=== PATIENT | male | born 1950 | race Caucasian/White ===

== ENCOUNTER 2022-08-14 12:30 | Outpatient (RCR) | payer OTHER, SELFPAY ==
--- NOTE | 2022-07-19 13:28 | PTOPEVAL1 ---
Assessment and note entered by Morales Kumar, PT Evaluation Information Assessment Status Evaluation Diagnosis L TKA Onset 3 weeks ago Subjective Information Patient reports he had a L TKA done 3 weeks ago and has had home health for the first two weeks, seen his surgeon to remove the toni and just turned in his CPM machine today. He used the walker for 4 days and the cane for maybe the rest of the 2 weeks. 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 He reports being faithful with all aspects of his rehab. Reported Pain Level Pain Score 0: Self Report Additional Pain Score Comments currently no pain, some pulling behind his knee that he would not quantify as pain. Assessment PT Clinical Summary Silverio is a 72 year old male coming into the clinic today with a L TKA post three weeks. He is ambulating without assistive device. Has good strength with minimal extension lag during straight leg raises and L knee flexion of 105 degrees once warmed up. Patient will continue to work on range of motion and strengthening while in therapy along with helping him progress back to prior functional mobility. Plan of Care Interventions Electrical Stimulation,Gait Training,Hot Pack/Cold Pack,Manual Therapy,Neuro Re-education,Patient/ Caregiver Education,Therapeutic Activities, Therapeutic Exercise PT Services Indicated Yes Treatment Frequency and 2x/wk for 4 weeks Duration These treatments will address the objective and functional deficits as defined above. The patient will be advanced safely and appropriately in order for the patient to progress towards his/her prior level of function. Additional exercises will be introduced and as well as a comprehensive home exercise program upon discharge, if needed, ?to ensure carryover of functional gains achieved in the clinic. This treatment plan has been reviewed and agreement upon by the patient.
--- NOTE | 2022-08-07 16:32 | PTOPPROGNS ---
Assessment and note entered by Morales Kumar, PT Evaluation Information Assessment Status Progress - Pt Not Present Diagnosis L TKA Onset 3 weeks ago Subjective Information Patient reports he had a L TKA done 3 weeks ago and has had home health for the first two weeks, seen his surgeon to remove the toni and just turned in his CPM machine today. He used the walker for 4 days and the cane for maybe the rest of the 2 weeks. 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 He reports being faithful with all aspects of his rehab. Assessment PT Clinical Summary Naresh is a 72 year old male coming into the clinic for a L TKA. He has attended 6 visits so far. He is not using any assistive devices and reports no issues with pre surgery functional mobility. He has normal strength and L knee active range of motion of 112 degrees flexion and lacking 2 degrees of extension. Plan of Care PT Services Indicated Yes These treatments will address the objective and functional deficits as defined above. The patient will be advanced safely and appropriately in order for the patient to progress towards his/her prior level of function. Additional exercises will be introduced and as well as a comprehensive home exercise program upon discharge, if needed, ?to ensure carryover of functional gains achieved in the clinic. This treatment plan has been reviewed and agreement upon by the patient.
--- NOTE | 2022-08-14 16:17 | PTOPDC ---
Assessment and note entered by Morales Kumar, PT Evaluation Information Assessment Status Discharge Diagnosis L TKA 06/27/22 Onset 3 weeks ago Subjective Information Patient reports he has returned to work without any issues. 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 Reports he is faithful with his exercises and reports no issues. Reported Pain Level Pain Score 0: Self Report Assessment PT Clinical Summary Silverio has met all goals, returned to work, and cannot think of anything he is unable to do at home that he wants to do. Discharged from skilled physical therapy. Plan of Care PT Services Indicated No Treatment Frequency and discharged from skilled physical therapy. Duration
== END 2022-08-14 17:16 | disposition home or self-care (01) ==
LOC: ANHPT 12:30
PROVIDERS: PCP Family Medicine
DX: M17.12 Unilateral primary osteoarthritis, left knee (principal)
CPT/HCPCS: 97110; 97161; 97530

== ENCOUNTER 2025-04-24 08:01 | Outpatient (CLI) | payer OTHER, SELFPAY ==
--- NOTE | ~2025-04-24 | US_ITS ---
Examination: US abdomen complete Clinical History: R17 - Unspecified jaundice . Comparison: None Technique: Complete abdominal sonography Findings: Liver: Normal size. Echogenic. No intrahepatic biliary ductal dilatation. Normal hepatopedal flow main portal vein. Common duct: Normal caliber, 4 mm. Gallbladder: No stones. No wall thickening. No pericholecystic fluid. Spleen: Unremarkable. Pancreas: Obscured by bowel gas. Kidneys: Unremarkable. Aorta: No aneurysmal dilatation. Retrohepatic IVC: Unremarkable. IMPRESSION: 1. Hepatic steatosis and/or diffuse hepatocellular disease. Reviewed, dictated and finalized at location R.
== END 2025-04-24 08:02 | disposition home or self-care (01) ==
LOC: MICIMG 08:02
PROVIDERS: PCP Family Medicine; Visit Provider Physician Assistant Medical
DX: K76.0 Fatty (change of) liver, not elsewhere classified (principal)
CPT/HCPCS: 76700